=== PATIENT | female | born 1985 | race Caucasian/White ===

== ENCOUNTER 2022-01-17 17:54 | Day surgery (SDC) | payer BC ==
[2022-01-17 18:35] LABS: Bilirubin Neg (Negative); Blood, Urine Negative (Negative); Clarity Clear (Clear); Glucose, Urine (Dipstick) Normal (Negative); Ketone, Urine 150 mg/dL (Negative); Leukocyte 25 (Negative); Nitrite Negative (Negative); Protein, Urine (Dipstick) Negative (Neg-Trace); Urobilinogen Normal mg/dL (Less than 2)
[2022-01-17 18:47] LABS: Urine Culture Reflex No No
[2022-01-17 18:50] LABS: WBC/HPF 0-3 HPF (0-3)
[2022-01-17 18:51] LABS: Bacteria/HPF None Seen HPF (None Seen); RBC/HPF 0-3 HPF (0-3); Squamous Epithelial 0-3 HPF (0-3); Transitional Epithelial 0-3 HPF (None Seen)
[2022-01-17] MEDS ORDERED: Acetaminophen 500 MG TAB PO SCH (21:45)
[2022-01-17] MEDS ORDERED: traMADol HCl 50 MG TAB PO SCH (21:45)
[2022-01-17 22:05] VITALS: BMI 22.6
== END 2022-01-18 00:09 | disposition home or self-care (01) ==
LOC: CSHLD/OP 17:54
PROVIDERS: ATTEND Obstetrics & Gynecology
DX: O26.893 Other specified pregnancy related conditions, third trimester (principal); R10.31 Right lower quadrant pain; M54.9 Dorsalgia, unspecified; O99.013 Anemia complicating pregnancy, third trimester; O09.523 Supervision of elderly multigravida, third trimester; O09.293 Supervision of pregnancy with other poor reproductive or obstetric history, third trimester; Z86.19 Personal history of other infectious and parasitic diseases; Z3A.31 31 weeks gestation of pregnancy
CPT/HCPCS: 81001; 87086; 99283

== ENCOUNTER 2022-01-19 16:37 | Day surgery (SDC) | payer BC ==
[2022-01-19] MEDS ORDERED: hydrALAZINE 20 MG/ML VIAL SLOW IVP PRN (17:50)
[2022-01-19] MEDS ORDERED: Lactated Ringer's 1,000 ML IV SCH (18:00)
[2022-01-19 18:33] LABS: Bilirubin Neg (Negative); Blood, Urine Negative (Negative); Clarity Clear (Clear); Glucose, Urine (Dipstick) Normal (Negative); Ketone, Urine 150 mg/dL (Negative); Leukocyte 100 (Negative); Nitrite Negative (Negative); Protein, Urine (Dipstick) 30 mg/dl (Neg-Trace); Specific Gravity, Urine 1.025 (1.002-1.036); Urobilinogen Normal mg/dL (Less than 2)
[2022-01-19 18:39] LABS: Urine Culture Reflex No No
[2022-01-19 18:41] LABS: SARS-CoV-2 NAA Rapid Test Not Detected (NotDetected)
[2022-01-19 18:42] VITALS: BMI 27.2
[2022-01-19 18:44] LABS: #Monocytes 0.7 10x3/uL (0.0-1.1); #Neutrophils 5.8 10x3/uL (1.5-8.4); %Basophils 0.4 % (0.0-2.0); %Eosinophils 0.1 % (0.0-6.0); %Lymphocytes 14.4 % (18.0-47.0); %Monocytes 8.6 % (0.0-10.0); %Neutrophils 75.6 % (40.0-75.0); Hemoglobin 11.5 g/dL (12.0-15.5); Mean Corpuscular HGB CONC 33.8 g/dL (32.0-36.0); Mean Corpuscular Hemoglobin 31.7 pg (27.0-33.0); Mean Corpuscular Volume 93.7 fl (81.6-98.3); Mean Platelet Volume 9.9 fl (7.4-10.4); Platelet Count 241 10x3/uL (150-450); RBC Distribution Width 13.4 % (11.5-14.5); Red Blood Cell (RBC) Count 3.63 10x6/uL (3.90-5.03); White Blood Cell (WBC) Count 7.7 10x3/uL (3.5-10.5)
[2022-01-19 18:45] LABS: RBC/HPF 0-3 HPF (0-3)
[2022-01-19 18:46] LABS: Bacteria/HPF 1+ HPF (None Seen); Transitional Epithelial 0-3 HPF (None Seen)
[2022-01-19 19:11] LABS: ALT (SGPT) 20 U/L (8-55); AST (SGOT) 24 U/L (5-34); Albumin 3.6 g/dL (3.5-5.0); Alkaline Phosphatase 73 U/L (40-110); Anion Gap 19 mmol/L (10-20); BUN (Urea Nitrogen) 7 mg/dL (7.0-18.7); Bilirubin, Total 0.6 mg/dL (0.2-1.2); Calc. Creatinine Clearance 147 mL/min (70-130); Calcium 8.8 mg/dL (7.8-10.44); Carbon Dioxide 11 mmol/L (22-29); Chloride 109 mmol/L (98-107); Estimated GFR 117; Globulin 3.2 g/dL (2.4-3.5); Glucose 86 mg/dL (70-105); Potassium 4.5 mmol/L (3.5-5.1); Protein, Total 6.8 g/dL (6.0-8.3); Sodium 134 mmol/L (136-145)
[2022-01-19] MEDS ORDERED: Ondansetron ODT 4 MG TAB SL PRN (19:50)
== END 2022-01-19 20:01 | disposition home or self-care (01) ==
LOC: CSHLD/OP 16:37
PROVIDERS: ATTEND Advanced Practice Midwife
DX: O99.613 Diseases of the digestive system complicating pregnancy, third trimester (principal); K52.9 Noninfective gastroenteritis and colitis, unspecified; O21.2 Late vomiting of pregnancy; O99.891 Other specified diseases and conditions complicating pregnancy; R51.9 Headache, unspecified; R53.83 Other fatigue; Z20.822 Contact with and (suspected) exposure to COVID-19; O99.283 Endocrine, nutritional and metabolic diseases complicating pregnancy, third trimester; E86.0 Dehydration; Z3A.31 31 weeks gestation of pregnancy
CPT/HCPCS: 36415; 80053; 81001; 85025; 96360; 99284; Q0162

== ENCOUNTER 2022-01-24 11:25 | Emergency (ER) | payer BC ==
[2022-01-24 11:58] LABS: #Eosinphils 0.1 10x3/uL (0.0-0.5); #Monocytes 0.6 10x3/uL (0.0-1.1); #Neutrophils 5.7 10x3/uL (1.5-8.4); %Basophils 0.3 % (0.0-2.0); %Eosinophils 0.8 % (0.0-6.0); %Lymphocytes 15.8 % (18.0-47.0); %Monocytes 8.2 % (0.0-10.0); %Neutrophils 74.1 % (40.0-75.0); Hemoglobin 10.1 g/dL (12.0-15.5); Mean Corpuscular HGB CONC 35.3 g/dL (32.0-36.0); Mean Corpuscular Hemoglobin 31.8 pg (27.0-33.0); Mean Corpuscular Volume 89.9 fl (81.6-98.3); Mean Platelet Volume 9.5 fl (7.4-10.4); Platelet Count 227 10x3/uL (150-450); RBC Distribution Width 13.2 % (11.5-14.5); Red Blood Cell (RBC) Count 3.18 10x6/uL (3.90-5.03); White Blood Cell (WBC) Count 7.7 10x3/uL (3.5-10.5)
[2022-01-24 12:11] LABS: ALT (SGPT) 28 U/L (8-55); AST (SGOT) 21 U/L (5-34); Alkaline Phosphatase 71 U/L (40-110); Anion Gap 8 mmol/L (10-20); BUN (Urea Nitrogen) 7 mg/dL (7.0-18.7); Bilirubin, Total 0.3 mg/dL (0.2-1.2); Calc. Creatinine Clearance 0 mL/min (70-130); Calcium 8.5 mg/dL (7.8-10.44); Carbon Dioxide 29 mmol/L (22-29); Chloride 105 mmol/L (98-107); Estimated GFR 122; Globulin 2.5 g/dL (2.4-3.5); Glucose 60 mg/dL (70-105); Lipase 44 U/L (8-78); Potassium 3.4 mmol/L (3.5-5.1); Protein, Total 5.5 g/dL (6.0-8.3); Sodium 139 mmol/L (136-145)
[2022-01-24 14:43] LABS: SARS-CoV-2 NAA Rapid Test Not Detected (NotDetected)
[2022-01-24] MEDS ORDERED: Acetaminophen 500 MG TAB ONE (14:58)
== END 2022-01-24 15:20 | disposition home or self-care (01) ==
LOC: CSHERS 11:25
DX: O99.891 Other specified diseases and conditions complicating pregnancy (principal); R07.2 Precordial pain; Z20.822 Contact with and (suspected) exposure to COVID-19; Z3A.32 32 weeks gestation of pregnancy
CPT/HCPCS: 36415; 71045; 80053; 83690; 84484; 85025; 93005

== ENCOUNTER 2022-03-20 12:21 | Inpatient (IN) | payer BC ==
[2022-03-20] MEDS ORDERED: HYDROcodone/Acetaminophen 5/325 mg Tablet PO PRN ×4 (12:31→20:18)
[2022-03-20] MEDS ORDERED: Ondansetron PF 4 MG/2 ML Vial IVP PRN (12:31)
[2022-03-20] MEDS ORDERED: Diphenoxylate HCl/Atropine Tablet PO PRN (12:31)
[2022-03-20] MEDS ORDERED: hydrALAZINE 20 MG/ML VIAL SLOW IVP PRN ×2 (12:31→20:18)
[2022-03-20] MEDS ORDERED: Ibuprofen 800 MG TAB PO PRN (12:31)
[2022-03-20] MEDS ORDERED: Misoprostol 200 MCG TAB PR PRN (12:31)
[2022-03-20] MEDS ORDERED: Butorphanol Tartrate 1 MG/ML VIAL SLOW IVP PRN (12:31)
[2022-03-20] MEDS ORDERED: Carboprost 250 MCG/ML AMP IM PRN (12:31)
[2022-03-20] MEDS ORDERED: Acetaminophen 500 MG TAB PO PRN (12:31)
[2022-03-20] MEDS ORDERED: Methylergonovine 0.2 MG/ML VIAL IM PRN ×2 (12:31→20:18)
[2022-03-20] MEDS ORDERED: Lidocaine 1% (PF) 30 ML VIAL SC PRN (12:31)
[2022-03-20] MEDS ORDERED: NS w/ Oxytocin 30 units 500 ML IV SCH ×3 (12:45→20:18)
[2022-03-20] MEDS ORDERED: Lactated Ringer's 1,000 ML IV SCH (12:45)
[2022-03-20 13:59] VITALS: BMI 25.5
[2022-03-20 15:11] LABS: Hemoglobin 9.9 g/dL (12.0-15.5); Mean Corpuscular HGB CONC 33.6 g/dL (32.0-36.0); Mean Corpuscular Hemoglobin 31.1 pg (27.0-33.0); Mean Corpuscular Volume 92.8 fl (81.6-98.3); Mean Platelet Volume 11.7 fl (7.4-10.4); Platelet Count 187 10x3/uL (150-450); RBC Distribution Width 13.5 % (11.5-14.5); Red Blood Cell (RBC) Count 3.18 10x6/uL (3.90-5.03); White Blood Cell (WBC) Count 9.3 10x3/uL (3.5-10.5)
[2022-03-20 15:39] LABS: Syphilis Antibody Nonreactive (Nonreactive); Syphilis Antibody Index 0.03 S/CO (<1.00 Non-Reactive)
[2022-03-20 15:40] LABS: HBSAg Index 0.23 S/CO (0-0.99); Hep B Surf Ag Non-Reactive S/CO (NonReactive)
[2022-03-20 15:54] LABS: SARS-CoV-2 NAA Rapid Test Not Detected (NotDetected)
[2022-03-20] MEDS ORDERED: Lanolin Ointment 7 GM TUBE TOP PRN (20:18)
[2022-03-20] MEDS ORDERED: Bisacodyl 10 MG SUPP PR PRN (20:18)
[2022-03-20] MEDS ORDERED: Milk Of Magnesia 30 ML UDCUP PO PRN (20:18)
[2022-03-20] MEDS ORDERED: Misoprostol 200 MCG TAB VAG PRN (20:18)
[2022-03-20] MEDS ORDERED: Preparation H Ointment 28 GM TUBE PR PRN (20:18)
[2022-03-20] MEDS: Ibuprofen 800 MG TAB PO SCH (22:22)
[2022-03-20] MEDS: Docusate 100 MG CAP PO SCH (22:22)
[2022-03-21] MEDS: Ibuprofen 800 MG TAB PO SCH ×2 (05:40→13:00)
[2022-03-21] MEDS: Ferrous Sulfate 325 MG TAB PO SCH ×2 (08:22→17:26)
[2022-03-21] MEDS: Docusate 100 MG CAP PO SCH (08:22)
[2022-03-21] MEDS ORDERED: Acetaminophen 500 MG TAB PO PRN (08:52)
[2022-03-21] MEDS ORDERED: Prenatal Vitamin 1 TAB PO SCH (09:00)
[2022-03-21 15:29] VITALS: BP 127/70; TEMP 98.7
== END 2022-03-21 20:40 | disposition home or self-care (01) | DRG 807 ==
LOC: CSHLD/OP 12:21 → CSHLD 16:40 → CSHPED 21:00
PROVIDERS: ADMIT Obstetrics & Gynecology; ATTEND Obstetrics & Gynecology
PROC: 10E0XZZ Delivery of Products of Conception, External Approach (ICD-10-PCS; principal; 2022-03-20)
PROC: 10907ZC Drainage of Amniotic Fluid, Therapeutic from Products of Conception, Via Natural or Artificial Opening (ICD-10-PCS; 2022-03-20)
PROC: 3E033VJ Introduction of Other Hormone into Peripheral Vein, Percutaneous Approach (ICD-10-PCS; 2022-03-20)
DX: O36.8130 Decreased fetal movements, third trimester, not applicable or unspecified (principal); Z37.0 Single live birth; Z3A.40 40 weeks gestation of pregnancy; Z20.822 Contact with and (suspected) exposure to COVID-19; F41.9 Anxiety disorder, unspecified; F32.A Depression, unspecified; O99.344 Other mental disorders complicating childbirth; Z79.899 Other long term (current) drug therapy; Z87.442 Personal history of urinary calculi; O77.0 Labor and delivery complicated by meconium in amniotic fluid; O69.81X0 Labor and delivery complicated by cord around neck, without compression, not applicable or unspecified
CPT/HCPCS: 36415; 85027; 86780; 86850; 86900; 86901; 87340; 99285; J0595; J2590; U0002